=== PATIENT | female | born 1990 | race Caucasian/White ===

== ENCOUNTER 2025-06-14 14:03 | Outpatient (CLI) | payer OTHER, SELFPAY | END 2025-06-14 14:04 | disposition home or self-care (01) | PROVIDERS: PCP Nurse Practitioner Family; Visit Provider Nurse Practitioner Family | DX: Z01.818 Encounter for other preprocedural examination (principal) | CPT/HCPCS: 80048; 85025 ==

== ENCOUNTER 2025-06-20 07:20 | Day surgery (SDC) | payer OTHER, SELFPAY ==
[2025-06-20] MEDS: LACTATED RINGERS 1000 ML 1,000 ML 100 ML IV (07:30)
[2025-06-20 07:34] VITALS: BMI 19.9
[2025-06-20 07:42] VITALS: BP 107/71; PULSE 63; RESP 16; TEMP 36.7; O2SAT 100
[2025-06-20 07:47] LABS: Ur HCG Qualitative* Negative (Negative)
[2025-06-20] MEDS: BUPIVACAINE 0.25% 30 ML INJECTION (09:05)
--- NOTE | 2025-06-20 09:12 | W.PM.H&PU ---
History & Physical Update History & Physical Update H&P Reviewed and patient assessed: No changes noted
--- NOTE | 2025-06-20 09:13 | PM.GSPRC ---
Operative Note Date of procedure: 06/20/25 Pre-op diagnosis: Reducible umbilical hernia Post-op diagnosis: Reducible 1 cm umbilical hernia Type of Procedure: Open primary repair Procedure Description: After discussing the risks and benefits of the procedure, the patient signed informed consent.? The operative site was marked and the patient was brought to the operating room and placed on the operating table in supine position.? Care was taken to pad the patient's pressure points.?? The patient was then given sedation by anesthesia.?? The operative site was then prepped and draped in the usual sterile fashion.? A time-out was then performed. Local anesthetic was injected into the fascia, skin and subcutaneous tissues. A curvilinear incision was made at the umbilicus. Dissection was carried down into the subcutaneous tissue using cautery. The hernia sac was encountered and care was taken to not enter it. Dissection was taken down to the fascia, and the umbilical stalk was carefully dissected off of the hernia sac. The sac was reduced and the fascial edges were then cleared circumferentially. The hernia was 1 cm in size and so mesh was not deemed necessary. The fascia was then closed with 0 Nurolon suture in a vest over pants fashion. The umbilicus was reapproximated to the fascia using 3-0 Vicryl. The skin was then closed with running absorbable suture. A sterile dressing was then applied. ? The patient was then woken and transported to the recovery area in stable condition. ? The patient tolerated the procedure well. Findings: 1 cm umbilical hernia Surgeon: Ivette Mojica MD Estimated blood loss (mL): 1 Condition: stable Disposition: same day
[2025-06-20 09:19] VITALS: BP 99/69; PULSE 63; RESP 14; TEMP 36.7; O2SAT 99
--- NOTE | 2025-06-20 09:24 | P.ANES_ITS ---
Anesthesia Charges Start Date/Time Anesthesia Start Date: 06/20/25 Anesthesia Start Time: 08:30 Stop Date/Time Anesthesia Stop Date: 06/20/25 Anesthesia Stop Time: 09:21 Coding CPT Codes CPT Codes: ANESTH REPAIR OF HERNIA - 12761 ([id number]) P1 - NORMAL HEALTHY PATIENT, QK - ACTIVITIES LEADER 2-4 CNCRNT ANES PROC, QX - PIN SORTER AND BAGGER SVKirstin W/ MED DIRECTION
--- NOTE | 2025-06-20 09:24 | W.ANESCHARGE ---
Anesthesia Charges Start Date/Time Anesthesia Start Date: 06/20/25 Anesthesia Start Time: 08:30 Stop Date/Time Anesthesia Stop Date: 06/20/25 Anesthesia Stop Time: 09:21 Coding CPT Codes CPT Codes: ANESTH REPAIR OF HERNIA - 80660 ([id number]) P1 - NORMAL HEALTHY PATIENT, QK - DEMONSTRATOR ELECTRIC GAS APPLIANCES 2-4 CNCRNT ANES PROC, QX - DISPLAY TRIMMER SVKirstin W/ MED DIRECTION
[2025-06-20 09:30] VITALS: BP 100/98; PULSE 65; RESP 14; O2SAT 99
[2025-06-20 09:45] VITALS: BP 102/87; PULSE 64; RESP 14; O2SAT 99
--- NOTE | 2025-06-20 09:54 | P.ANES_ITS ---
Anesthesia Charges Start Date/Time Anesthesia Start Date: 06/20/25 Anesthesia Start Time: 08:30 Stop Date/Time Anesthesia Stop Date: 06/20/25 Anesthesia Stop Time: 09:21 Coding CPT Codes CPT Codes: ANESTH REPAIR OF HERNIA - 94259 ([id number]) QX - SPEEDER OPERATOR BASILIA W/ MED DIRECTION, QK - PICKED EDGE SEWING MACHINE OPERATOR 2-4 CNCRNT ANES PROC, P1 - NORMAL HEALTHY PATIENT
--- NOTE | 2025-06-20 09:54 | W.ANESCHARGE ---
Anesthesia Charges Start Date/Time Anesthesia Start Date: 06/20/25 Anesthesia Start Time: 08:30 Stop Date/Time Anesthesia Stop Date: 06/20/25 Anesthesia Stop Time: 09:21 Coding CPT Codes CPT Codes: ANESTH REPAIR OF HERNIA - 91030 ([id number]) QX - INSPECTOR TIMERS BASILIA W/ MED DIRECTION, QK - ACID RECOVERY OPERATOR 2-4 CNCRNT ANES PROC, P1 - NORMAL HEALTHY PATIENT
[2025-06-20 10:00] VITALS: BP 101/77; PULSE 65; RESP 14; O2SAT 99
[2025-06-20] MEDS: ACETAMINOPHEN 325 MG TABLET 650 MG PO (10:14)
== END 2025-06-20 10:35 | disposition home or self-care (01) ==
PROVIDERS: PCP Nurse Practitioner Family; Visit Provider Surgery
PROC: (CPT 49591; principal; 2025-06-20 08:30)
DX: K42.9 Umbilical hernia without obstruction or gangrene (principal)
CPT/HCPCS: 49591; 00830; 81025; A9270; J0330; J0665; J0690; J1100; J2250; J2371; J2405; J2704; J3010; J3490; J7120

== ENCOUNTER 2025-07-16 13:24 | Emergency (ER) | payer OTHER, SELFPAY ==
--- OUTSIDE RECORDS SUMMARY | 2024-01-23 05:32 | XMS_ITS ---
Author Organization [facility] In ternal Medicine [facility] [place] Address [address] [facility] [address] [place], [place] [address] Care Team Providers Care Director Of Intercollegiate Athletics Name Role Phone NON GRMG, PCP Primary Care Provider ELIZABETH Hood Unavailable [phone] REASON FOR VISIT DERMO - medication refill MEDICATIONS Medication SIG (Take, Route, Frequency, Duration) Notes Start Date End Date Status Clindamycin Phos-Benzoyl Perox 1.2-5 % 1 pea size amt mixed with facial moisturizer to entire face Externally every evening for 30 days Active Finacea 15 % 1 pea size amt mixed with facial moisturizer to entire face Externally every morning for 30 days Active Encounters Encounter Location Date Provider Diagnosis [facility] [address] [id number] 01/23/2024 ELIZABETH CHAU Acne rosacea L71.9 ASSESSMENTS Encounter Date Diagnosis Assessment Notes Treatment Notes Treatment Clinical Notes 01/23/2024 Acne rosacea (ICD-10 - L71.9) PLAN OF TREATMENT Medication Medication Name Sig Start Date Stop Date Notes Clindamycin Phos-Benzoyl Perox 1.2-5 % 1 pea size amt mixed with facial moisturizer to entire face Externally every evening for 30 days Finacea 15 % 1 pea size amt mixed with facial moisturizer to entire face Externally every morning for 30 days
--- OUTSIDE RECORDS SUMMARY | 2024-08-03 02:50 | XMS_ITS ---
Author Organization [facility] In ternal Medicine [facility] [place] Address [address] [facility] [address] [place], [place] [address] Care Team Providers Care Manager Training And Development Name Role Phone NON GRMG, PCP Primary Care Provider TORIE Rey Unavailable [phone] ALLERGIES No Known Allergies RESULTS Component Value Reference Range Notes Strep (ID NOW) Reviewed date:08/03/2024 09:51:31 AM Interpretation: Performing Lab: Notes/Report: Result Positive REASON FOR VISIT Poss strep MEDICATIONS Medication SIG (Take, Route, Frequency, Duration) Notes Start Date End Date Status Clindamycin Phos-Benzoyl Perox 1.2-5 % 1 pea size amt mixed with facial moisturizer to entire face Externally every evening for 30 days Active Finacea 15 % 1 pea size amt mixed with facial moisturizer to entire face Externally every morning for 30 days Active multivitamins with minerals (MULTIVITAL-M) TABS Take 1 each by mouth daily. Oral *Reorder from [employer] for eRx and Interaction Alerts* Active Finacea 15 % 1 pea-sized amount mixed with facial moisturizer to entire face avoiding eye area Externally QAM for 30 days 12/11/2018 Not-Taking Ibuprofen 800 MG Take 1 tablet by mouth every 6 (six) hours as needed. Oral 06/09/2020 Not-Taking Amoxicillin 500 MG 1 capsule Orally Twice a day for 10 days 08/03/2024 08/13/2024 Active Clindamycin Phos-Benzoyl Perox 1.2-5 % APPLY PEA SIZE AMOUNT MIXED WITH FACIAL MOISTURIZER TO FACE EVERY EVENING for 30 Active MetroLotion 0.75 % 1 pea-sized amount mixed with facial moisturizer to entire face Externally QHS for 30 days 12/11/2018 Not-Taking Sunscreen SPF50 - as directed Externally 06/03/2022 Not-Taking SOCIAL HISTORY Tobacco Use: Social History Observation Description Date Details (start date - stop date) Never Smoker NA - NA Sex Assigned At : Social History Observation Description Sex Assigned At Unknown Tobacco Use/Smoking Question Answer Notes Are you a nonsmoker VITAL SIGNS Temperature 97.8 degrees Fahrenheit 08/03/20 24 Blood pressure systolic 104 mm Hg 08/03/20 24 Blood pressure diastolic 68 mm Hg 024 Weight-kg 57.88 kg 08/03/2024 Weight 127.6 lbs 08/03/2024 Height-cm 167.64 cm 08/03/2024 Height 66 in 08/03/2024 BMI 20.59 kg/m2 08/03/2024 Oximetry 99 % 08/03/2024 Encounters Encounter Location Date Provider Diagnosis [facility] [address] [phone] 08/03/2024 TORIE THEODORE Sore throat J02.9 an d Strep throat J02.0 ASSESSMENTS Encounter Date Diagnosis Assessment Notes Treatment Notes Treatment Clinical Notes 08/03/2024 Sore throat (ICD-10 - J02.9) 08/03/2024 Strep throat (ICD-10 - J02.0) Strep ID-Now positive. Results shared at the time of visit. Will start patient on antibiotics. Encouraged maintaining adequate fluids and rest. May take Tylenol/ibuprofen for fever/comfort. Do not share eating/drinking utensils and change toothbrush. Notify PCP or RTC if symptoms not improving with use of antibiotic. Discussed symptoms that would warrant closer follow up. Patient and/or caregiver expressed understanding and agreement to this plan. 08/03/2024 Other Strep Throat: C are Instructions material was printed This provider has spoke with the patient and/or caregiver and discussed today's findings, in addition to providing specific detail for the plan of care and counseling regarding the diagnosis and prognosis. Discussed red flag symptoms of when to return versus when to present to the ED. Advised to schedule an appointment with PCP for follow-up. Patient and/or caregiver verbalizes understanding and agreement to plan of care. All questions were answered. Patient's VSS and in NAD. Will discharge pt home in stable condition. PLAN OF TREATMENT Medication Medication Name Sig Start Date Stop Date Notes Amoxicillin 500 MG 1 capsule Orally Twi ce a day for 10 days 08/03/2024 08/13/2024 Treatment Notes Assessment Notes Other Strep Throat: Care I nstructions material was printed Next Appt Details Follow Up: prn, Reason: Progress Notes * Examination Category Sub-Category Detail Notes General Examination GENERAL APPEARANCE: in no ac [place] distress, well developed, well nourished HEAD: normocephalic, atrau matic EYES: pupils equal, round, reactive to light and accommodation EARS: normal NOSE: Normal THROAT: Erythematous pharynx with tonsils 2+ bilaterally without exudate, uvula midline NECK/THYROID: neck supple, full ra nge of motion, tender anterior cervical lymphadenopathy HEART: no murmurs, regular rate and rhythm, S1, S2 normal LUNGS: clear to auscultatio n bilaterally SKIN: no suspicious lesion s, warm and dry ORAL CAVITY: mucosa moist
--- OUTSIDE RECORDS SUMMARY | 2024-09-11 03:00 | XMS_ITS ---
Author Organization [facility] [place] Address [address] [facility] [address] [place], [place] [address] Care Team Providers Care Zone Maintenance Technician Name Role Phone NON GRMG, PCP Primary Care Provider UnavailSANA Hayes Unavailable [phone] REASON FOR VISIT dermo 1y acne Encounters Encounter Location Date Provider Diagnosis zDermatology [address] [id number] 09/11/2024 SANA Fonseca PLAN OF TREATMENT No Information
--- OUTSIDE RECORDS SUMMARY | 2024-09-11 03:30 | XMS_ITS ---
Author Organization [facility] In ternal Medicine Multi [facility] [place] Address [address] [facility] [address] [place], [place] [address] Care Team Providers Care Technology Specialist Name Role Phone NON GRMG, PCP Primary Care Provider ELIZABETH Hood Unavailable [phone] ALLERGIES No Known Allergies RESULTS Component Value Reference Range Notes Surgical Specimen, Pathology Reviewed date:09/18/2024 10:56:12 AM Interpretation: Performing Lab: Notes/Report: Surgical Pathology REASON FOR VISIT Full body skin exam, F/u acne MEDICATIONS Medication SIG (Take, Route, Frequency, Duration) Notes Start Date End Date Status multivitamins with minerals (MULTIVITAL-M) TABS Take 1 each by mouth daily. Oral *Reorder from [employer] for eRx and Interaction Alerts* Active MetroLotion 0.75 % 1 pea-sized amount mixed with facial moisturizer to entire face Externally QHS for 30 days 12/11/2018 Not-Taking Sunscreen SPF50 - as directed Externally 06/03/2022 Not-Taking Finacea 15 % 1 pea-sized amount mixed with facial moisturizer to entire face avoiding eye area Externally QAM for 30 days 12/11/2018 Not-Taking Ibuprofen 800 MG Take 1 tablet by mouth every 6 (six) hours as needed. Oral 06/09/2020 Not-Taking Finacea 15 % 1 pea size amt mixed with facial moisturizer to entire face Externally every morning for 30 days Active Sunscreen SPF50 as directed Externally 09/11/2024 Active Clindamycin Phos-Benzoyl Perox 1.2-5 % 1 pea size amt mixed with facial moisturizer to entire face Externally every evening for 30 days Active Clindamycin Phos-Benzoyl Perox 1.2-5 % APPLY PEA SIZE AMOUNT MIXED WITH FACIAL MOISTURIZER TO FACE EVERY EVENING for 30 Not-Taking Vaseline . apply to affected area Externally two to three times daily for 7 days 09/11/2024 09/18/2024 Active SOCIAL HISTORY Tobacco Use: Social History Observation Description Date Details (start date - stop date) Never Smoker NA - NA Sex Assigned At : Social History Observation Description Sex Assigned At Unknown Tobacco Use/Smoking Question Answer Notes Are you a nonsmoker VITAL SIGNS Blood pressure systolic 110 mm Hg 09/11/20 24 Blood pressure diastolic 80 mm Hg 024 Weight-kg 57.7 kg 09/11/2024 Weight 127.2 lbs 09/11/2024 Height-cm 167.64 cm 09/11/2024 Height 66 in 09/11/2024 BMI 20.53 kg/m2 09/11/2024 PROCEDURES Procedure Date Ordered Date Performed Result Body Sit e BIOPSY, SKIN/SUBQ TISSUE 09/11/2024 N/A Encounters Encounter Location Date Provider Diagnosis [facility] [address] [place], [place] [id number] 09/11/2024 ELIZABETH CHAU Acne rosacea L71.9 ; Moderate sun exposure, initial encounter X32.XXXA ; Neoplasm of unspecified behavior of bone, soft tissue, and skin D49.2 ; Family history of nonmelanoma skin cancer Z80.8 and Multiple benign nevi D22.9 ASSESSMENTS Encounter Date Diagnosis Assessment Notes Treatment Notes Treatment Clinical Notes 09/11/2024 Acne rosacea (ICD-10 - L71.9) Acne etiology and expectations reviewed. Continue Duac every morning. Continue Finacea every evening. Call with concerns. Recheck in 1 year. 09/11/2024 Moderate sun exposure, initial encounter (ICD-10 - X32.XXXA) Patient Educated with: Sunscreens (Sunscreens.pdf) Actinically damaged skin is the result of chronic ultraviolet radiation exposure and this increases the risk of skin cancer. Sun protection was discussed including sunscreen use, protective clothing and avoidance. Recommend zinc oxide or titanium dioxide based sunscreens with a broad spectrum SPF 50+. Reapply every 2 hours. 09/11/2024 Neoplasm of unspecified behavior of bone, soft tissue, and skin (ICD-10 - D49.2) Patient Educated with: Wound Care (Wound Care.pdf) A shave biopsy was performed of the lesion on the right lateral umbilicus after a photo was obtained. Specimen container was labeled with the appropriate identifyng information. Drysol was used for hemostasis. Verbal and written wound care instructions were given to the patient. Written consent for the procedure was obtained and verbal consent for photography. 09/11/2024 Family history of nonmelanoma skin cancer (ICD-10 - Z80.8) The patient was encouraged to perform monthly self skin exams. 09/11/2024 Multiple benign nevi (ICD-10 - D22.9) None with any significant clinical atypia. The ABCDE's of melanoma were discussed with the patient. The patient was reassured regarding the benign appearance of the lesions on the vertex scalp and left plantar surface Monitor for any significant change and report. PLAN OF TREATMENT Medication Medication Name Sig Start Date Stop Date Notes Finacea 15 % 1 pea size amt mixed with facial moisturizer to entire face Externally every morning for 30 days Sunscreen SPF50 as directed Externally 09/11/2024 Clindamycin Phos-Benzoyl Perox 1.2-5 % 1 pea size amt mixed with facial moisturizer to entire face Externally every evening for 30 days Vaseline . apply to affected ar ea Externally two to three times daily for 7 days 09/11/2024 09/18/2024 Treatment Notes Assessment Notes Moderate sun exposure, initial encounter Patient Educated with: Sunscreens (Sunscreens.pdf) Neoplasm of unspecified beha vior of bone, soft tissue, and skin Patient Educated with: Wound Care (Wound Care.pdf) Pending Test Test Name Order Date BIOPSY, SKIN/SUBQ TISSUE 09/11/2024 Next Appt Details Follow Up: 1 Year, Reason: D ermo routine skin exam Progress Notes * Examination Category Sub-Category Detail Notes Dermatology SKIN Fairly evenly pi gmented brown/pink macules and papules with relative symmetry and border regularity on the anterior and posterior trunk and bilateral upper and lower extremities Fairly evenly pigmented light brown macules on the face, chest and shoulders On the right lateral umbilicus there is an irregularly pigmented macule
--- OUTSIDE RECORDS SUMMARY | 2024-09-18 04:54 | XMS_ITS ---
Author Organization [facility] In [facility] Medicine Multi Special[facility] [place] Address [address] [facility] [address] [place], [place] [address] Care Team Providers Care Fast Food Crew Lead Name Role Phone NON GRMG, PCP Primary Care Provider ELIZABETH Hood Unavailable [phone] REASON FOR VISIT DERMO - path result Encounters Encounter Location Date Provider Diagnosis zDermatology [id number] [place], [place] [phone] 09/18/2024 ELIZABETH CHAU PLAN OF TREATMENT No Information
[2025-07-16] VITALS (11 sets, daily range): BP systolic 112–131; BP diastolic 72–87; PULSE 63–80; RESP 14–16; TEMP 36.3; O2SAT 90–100; BMI 20.7
--- OUTSIDE RECORDS SUMMARY | 2025-07-16 13:28 | XMS_ITS | Patient Health Record ---
Author Organization [facility] [place] Address [address] [facility] [address] [place], [place] [address] Care Team Providers Care Accountant Property Name Role Phone NON GRMG, PCP Primary Care Provider UnavailSANA Hayes Unavailable [phone] ELIZABETH CHAU Unavailable [phone] TORIE THEODORE Unavailable [phone] ALLERGIES No Known Allergies RESULTS Component Value Reference Range Notes Surgical Specimen, Pathology Reviewed date:09/18/2024 10:56:12 AM Interpretation: Performing Lab: Notes/Report: Surgical Pathology Strep (ID NOW) Reviewed date:08/03/2024 09:51:31 AM Interpretation: Performing Lab: Notes/Report: Result Positive REASON FOR REFERRAL No Information MEDICATIONS Medication SIG (Take, Route, Frequency, Duration) Notes Start Date End Date Status Finacea 15 % 1 pea size amt mixed with facial moisturizer to entire face Externally every morning for 30 days Active Sunscreen SPF50 as directed Externally 09/11/2024 Active multivitamins with minerals (MULTIVITAL-M) TABS Take 1 each by mouth daily. Oral *Reorder from [employer] for eRx and Interaction Alerts* Active Clindamycin Phos-Benzoyl Perox 1.2-5 % 1 pea size amt mixed with facial moisturizer to entire face Externally every evening for 30 days Active Clindamycin Phos-Benzoyl Perox 1.2-5 % APPLY PEA SIZE AMOUNT MIXED WITH FACIAL MOISTURIZER TO FACE EVERY EVENING for 30 Not-Taking MetroLotion 0.75 % 1 pea-sized amount mixed [...] (six) hours as needed. Oral 06/09/2020 Not-Taking IMMUNIZATIONS Vaccine Route Administration Date Status Comme nts Influenza, Quadrivalent 0.5ml Unknown 10/08/2019 Administered Influenza, Quadrivalent 0.5ml Unknown 07/07/2020 Administered PURIFIED PROTEIN DERIVATIVE (PPD) ID Intradermal 05/03/2019 Administered VFC TETANUS, DIPHTHERIA, ACELLULAR PERTUSSIS (Tdap), 7+ yrs Unknown 03/26/2020 Administered SOCIAL HISTORY Tobacco Use: Social History Observation Description Date Details (start date - stop date) Never Smoker NA - NA Sex Assigned At : Social History Observation Description Sex Assigned At Unknown Tobacco Use/Smoking Question Answer Notes Are you a nonsmoker PROBLEMS Problem Type ICD Code Onset Dates Problem Status W/U Status Risk SNOMED Code Notes Problem Acne rosacea (L71.9) Active confirmed [id number] VITAL SIGNS Temperature 97.8 degrees Fahrenheit 08/03/2024 Height-cm 167.64 cm 09/11/2024 Oximetry 99 % 08/03/2024 Blood pressure diastolic 80 mm Hg 09/11/2024 Weight-kg 57.7 kg 09/11/2024 Height 66 in 09/11/2024 Blood pressure systolic 110 mm Hg 09/11/2024 Weight 127.2 lbs 09/11/2024 BMI 20.53 kg/m2 09/11/2024 PROCEDURES Procedure Date Ordered Date Performed Result Body Sit e BIOPSY, SKIN/SUBQ TISSUE 09/11/2024 N/A Encounters Encounter Location Date Provider Diagnosis zDermatology [address] [id number] 09/11/2024 ELIZABETH CHAU Acne rosacea L71.9 ; Moderate sun exposure, initial encounter X32.XXXA ; Neoplasm of unspecified behavior of bone, soft tissue, and skin D49.2 ; Family history of nonmelanoma skin cancer Z80.8 and Multiple benign nevi D22.9 Dermntology [facility] [address] [place], [place] [phone] 09/11/2024 SANA [facility] [address] [facility] [address] [place] [address] 08/03/2024 TORIE THEODORE Sore throat J02.9 and Strep [facility] J02.[facility] [address] [place] [phone] 09/18/2024 ELIZABETHMARYANN GELLERMarilyn ASSESSMENTS Encounter Date Diagnosis Assessment Notes Treatment [...] spectrum SPF 50+. Reapply every 2 hours. 08/03/2024 Sore throat (ICD-10 - J02.9) 08/03/2024 [...] expressed understanding and agreement to this plan. 09/11/2024 Neoplasm of unspecified behavior of bone, [...] Monitor for any significant change and report. 08/03/2024 Other Strep Throat: C are Instructions [...] home in stable condition. PLAN OF TREATMENT Pending Test Test Name Order Date BIOPSY, SKIN/SUBQ TISSUE 09/11/2024 Insurance Providers Payer Name Payer Address Payer Phone Subscriber Number Group Number Insured Name Patient Relationship to Insured Coverage Start Date Coverage End Date [facility] [address] [place] [address] [id number] Dejuan Ahmadi Spouse - patient is the spouse of the insured 2018 MEDICAL (GENERAL) HISTORY Medical History History ICD Code Problems: No known active problems , Sta tus: active Surgical History Surgery Date(Month/Year) wisdom teeth extraction x 2 2012 Hospitalization History Reason Date(Month/Year) - of twin girls
--- NOTE | 2025-07-16 14:00 | ED_ITS ---
HPI - General Adult General Date Seen: 07/16/25 Chief complaint: Abdominal Pain Stated complaint: lower abdominal pain Time Seen by Provider: 07/16/25 13:56 History of Present Illness HPI narrative: Very pleasant 34-year-old female presenting to the ER this morning for evaluation of abdominal pain. She started developing right lower quadrant abdominal pain this morning. No nausea or vomiting. Normal bowel movements and no diarrhea. Urination has been normal. She does have a history of an umbilical hernia repair less than 1 month ago on June [address] Mojica She has been healthy and well lately. No ongoing abdominal pain. Normal bowel movements. No nausea vomiting. Normal urination. She is currently on her menstrual cycle and this is on time and typical in its cramping and amount of bleeding. This morning she developed more severe right lower quadrant/right pelvic cramping. He was initially fairly mild and she was at work but then the symptoms got more severe and worse. It was so painful she vomited once (nonbloody). The pain became more intense so she had leave work and come here to the ER. She has not had any fever. Related Data Previous Rx's ?Medication ?Instructions ?Recorded azelaic acid 15 % topical gel 1 applic topical BID #50 grams 03/19/25 clindamycin 1.2 % (1 % 1 applic topical QPM #45 gra ms 03/19/25 base)-benzoyl peroxide 5 % topical gel ondansetron 4 mg disintegrating 4 mg PO Q8H PRN nausea and 07/16/25 tablet vomiting #10 tabs oxycodone-acetaminophen 5 mg-325 1 - 2 tab PO Q4-6H IL N pain #20 07/16/25 mg tablet (Percocet) tabs tamsulosin 0.4 mg capsule (Flomax) 0.4 mg PO DAILY #10 caps 07/16/25 Allergies Allergy/AdvReac Type Severity Reaction Status Date / Time No Known Drug Allergies Allergy Verified 07/16/25 16:36 [facility] Medical History (Updated 07/16/25 @ 17:49 by Taiwo Manzo MD) History of gestational diabetes ?Z86.32 - Personal history of gestational diabetes (ICD-10) Surgical History (Updated 07/09/25 @ 11:15 by Ivette Mojica MD) H/O umbilical hernia repair ?Z98.890 - Other specified postprocedural states (ICD-10) ?Z87.19 - Personal history of other diseases of the digestive system (ICD-10) History of wisdom tooth extraction ?K08.409 - Partial loss of teeth, unspecified cause, unspecified class (ICD- 10) H/O tubal ligation ?Z98.51 - Tubal ligation status (ICD-10) History of ?Z98.891 - History of uterine scar from previous surgery (ICD-10) Family History (Updated 06/14/25 @ 13:58 by Ambika Arceo APRN, SNEHAL) Mother Diabetes Congenital heart defect Paternal Grandmother Skin cancer Diabetes Maternal Grandmother Diabetes Social History Narrative: . 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 Bachelor's degree. No formal exercise. Nonsmoker. Alcohol rare. No illicit drug use. What is your current living situation?: I presently have a place to live Problems where you live: no known problems In the past 12 months, utilities in danger of being shut off: no In past 12 months, lack of transportation kept you from medical appts, meetings, work, or getting things needed for daily living: no In the past 12 mos, have been you worried that your food would run out before yo u had money to buy more?: never true In the past 12 mos, the food you bought just didn't last and you didn't have money to buy more?: never true Smoking Status: Never smoker Do you use any of these nicotine containing products: None How often do you have a drink containing alcohol: monthly or less How many standard drinks containing alcohol do you have on a typical day: 1 or 2 How often do you have six or more drinks on one occasion: Never AUDIT-C Alcohol total score: 1 Non-prescribed substance use: denies use Caffeine: Yes How often does anyone, including family, friends and others, physically hurt you : never How often does anyone, including family, friends and others, insult or talk down to you: never How often does anyone, including family, friends and others, threaten you with harm: never How often does anyone, including family, friends and others, scream or curse at you: never Are you using contraception or practicing any form of control: No service: No Exam Narrative: Exam Narrative: Constitutional: Appears well-developed and well-nourished. Alert. Initially very uncomfortable but polite and Conversant. Non toxic. HENT: Head: Atraumatic. Nose: Nose normal. Mouth/Throat: Oral mucosa is clear and moist. no trismus. Pharynx normal. Tonsils symmetric. No tonsillar enlargement, erythema, or exudate. Eyes: Conjunctivae normal. EOM normal. Pupils equal, round, and reactive to light. No scleral icterus. Neck: Normal range of motion. Neck supple. No tracheal deviation present. Cardiovascular: Normal rate, regular rhythm. No gallop. No friction rub. No murmur heard. Symmetric radial artery pulses Pulmonary/Chest: Effort normal. No stridor. No respiratory distress. No wheezes. No rales. No rhonchi . No tenderness. Abdominal: Soft. Bowel sounds normal. No distension. No mass. Right lower quad tenderness. No CVA tenderness No rebound. No guarding. Musculoskeletal: RUE: Normal range of motion. No tenderness. No deformity LUE: Normal range of motion. No tenderness. No deformity RLE: Normal range of motion. No edema. No tenderness. No deformity LLE: Normal range of motion. No edema. No tenderness. No deformity Neurological: Alert and oriented to person, place, and time. Normal strength. CN II-VII intact. No sensory deficit. GCS eye subscore is 4. GCS verbal subscore is 5. GCS motor subscore is 6. Normal coordination Skin: Skin is warm and dry. No rash noted. No pallor. Normal capillary refill. Psychiatric: Normal mood. Normal affect. Const: Vital Signs, click to edit/add: Vital Signs - 24 hr 07/16/25 13:53 07/16/25 14:40 07/16/25 14:45 Temperature 97.3 F L Pulse Rate 65 64 Pulse Rate [Pulse Oximeter] 80 Respiratory Rate 16 Blood Pressure Blood Pressure [Ri ght Upper Arm] 112/74 Pulse Oximetry 99 91 90 Oxygen Delivery Me thod Room Air 07/16/25 15:00 07/16/25 15:00 07/16/25 15:15 Temperature Pulse Rate 66 67 Pulse Rate [Pulse Oximeter] 64 Respiratory Rate 16 Blood Pressure Blood Pressure [Ri ght Upper Arm] 120/83 Pulse Oximetry 93 100 93 Oxygen Delivery Me thod Room Air 07/16/25 15:16 07/16/25 15:30 07/16/25 15:31 Temperature Pulse Rate 66 64 Pulse Rate [Pulse Oximeter] Respiratory Rate Blood Pressure 131/72 122/87 Blood Pressure [Ri ght Upper Arm] Pulse Oximetry 93 96 Oxygen Delivery Me thod 07/16/25 16:00 07/16/25 17:00 07/16/25 18:00 Temperature Pulse Rate Pulse Rate [Pulse Oximeter] 63 73 77 Respiratory Rate 16 16 14 Blood Pressure Blood Pressure [Ri ght Upper Arm] 115/78 113/73 117/86 Pulse Oximetry 100 95 96 Oxygen Delivery Me thod Room Air Room Air Room Air Course Vital Signs Vital signs: Initial Vital Signs Temperature 97.3 F L 07/16/25 13:53 Temperature Source Temporal Artery Scan 07/16/25 13:53 Pulse Rate 80 07/16/25 13:53 Respiratory Rate 16 07/16/25 13:53 Blood Pressure 112/74 07/16/25 13:53 Blood Pressure Mean 86 07/16/25 13:53 Pulse Oximetry 99 07/16/25 13:53 Oxygen Delivery Method Room Air 07/16/25 13:53 Vital Signs Temperature 97.3 F L 07/16/25 13:53 Pulse Rate 80 07/16/25 13:53 Respiratory Rate 16 07/16/25 13:53 Blood Pressure 112/74 07/16/25 13:53 Pulse Oximetry 99 07/16/25 13:53 Oxygen Delivery Method Room Air 07/16/25 13:53 Temperature 97.3 F L 07/16/25 13:53 Pulse Rate 77 07/16/25 18:00 Respiratory Rate 14 07/16/25 18:00 Blood Pressure 117/86 07/16/25 18:00 Pulse Oximetry 96 07/16/25 18:00 Oxygen Delivery Method Room Air 07/16/25 18:00 Medications Administered Medications: Discontinued Medications Generic Name Dose Route Start Last Admin Trade Name Freq PRN Reason Stop Dose Admin Hydromorphone HCl 0.5 mg 07/16/25 14:03 07/16/25 14:18 Hydromorphone 0.5 Mg/0.5 Ml Inj IVP 0.5 mg Q1H PRN Administration Pain Sodium Chloride 1,000 mls @ 1,000 mls/hr 07/16/25 14:15 07/16/25 14:27 0.9 % Sodium Chloride 1000 Ml IV 07/16/25 15:14 1,000 mls/hr .Q1H SHEREE Administration Ketorolac Tromethamine 15 mg 07/16/25 14:03 07/16/25 14:18 Ketorolac 15 Mg/Ml Inj IVP 07/16/25 14:04 15 mg ONCE ONE Administration Ondansetron HCl 4 mg 07/16/25 14:03 07/16/25 14:18 Ondansetron 2 Mg/Ml Inj IVP 07/16/25 14:04 4 mg ONCE ONE Administration Medical Decision Making MDM Narrative Medical decision making narrative: This patient presents with abrupt onset of right lower quadrant abdominal pain with some radiation to the right mid abdomen. After she was here in the ER she did have some right flank pain as well. Differential Diagnosis considered includes: Musculoskeletal pain, complication of her recent hernia surgery, ovarian pathology such as cyst or torsion, complication, Ureterolithiasis, UTI, pyelonephritis, AAA, colitis, diverticulitis, volvulus, appendicitis, cholecystitis, among others. At this point, the evaluation indicates that ureterolithiasis is the cause of the patient's symptoms. There are no signs that this is an infected stone. The patient's pain is controlled in ED. The patient is hemodynamically stable in ED. I think the patient is safe for discharge. The plan is discharge to home with recheck by primary care physician or urology.They will return to the ED right away if symptoms worsen (e.g Return immediately for fevers greater than 102, increasing pain, other new symptoms develop). Ureterolithiasis precautions for home. Prescriptions for pain control, nausea control, and flomax were provided. The patient's questions were answered. Opiate precautions reviewed. Questions answered Lab Data Labs: Lab Results 07/16/25 07/16/25 Range/Units 14:03 14:10 WBC 13.27 H (4.50-11.00) K/uL RBC 4.27 (4.00-5.20) m/uL Hgb 11.7 L (12.0-16.0) gm/dL Hct 35.9 (33.0-51.0) % MCV 84 (80-100) fL MCH 27 (26-34) pg MCHC 33 (32-36) gm/dL RDW Coeff of Toi 14.1 (11.5-15.5) % Plt Count 355 (140-440) K/uL Neut % (Auto) 86.0 H (42.0-72.0) % Lymph % (Auto) 6.8 L (20-44) % [place] % (Auto) 6.6 (0.0-11.0) % Eos % (Auto) 0.3 (0.0-7.0) % Baso % (Auto) 0.1 (0.0-3.0) % Neut # (Auto) 11.40 H (1.7-7.0) K/uL Lymph # (Auto) 0.90 (0.90-2.90) K/uL [place] # (Auto) 0.90 (0.00-0.90) K/UL Eos # (Auto) 0.00 (0.00-0.50) K/uL Baso # (Auto) 0.00 (0.00-0.30) K/uL Abs Immat Gran (auto) 0.00 (0.00-0.30) K/uL Imm/Tot Granulo (auto) 0.2 % Sodium 138 (135-149) mmol/L Potassium 3.8 (3.6-5.1) mmol/L Chloride 104 (96-114) mmol/L Carbon Dioxide 25 (20-32) mmol/L Anion Gap 9 (7-15) mEq/L BUN 15 (5-24) mg/dL Creatinine 0.8 (0.5-1.5) mg/dL Estimated Creat Clear 92.53 Estimated GFR 100 ml/min Glucose 136 H (60-115) mg/dL Lactate 1.3 (0.5-1.9) mmol/L Calcium 9.0 (8.4-10.6) mg/dL Total Bilirubin 0.2 (0.1-1.5) mg/dL AST 24 (12-35) U/L ALT 18 (4-35) U/L Alkaline Phosphatase 46 (40-150) U/L Total Protein 7.3 (6.0-8.3) g/dL Albumin 4.6 (3.3-5.0) g/dL Urine Color Yellow (Yellow) Urine Appearance Cloudy A (Clear) Urine pH 8.5 (5.0-8.5) Ur Specific [place] 1.020 (1.000-1.030) Urine Protein 1+ A (Negative) Urine Glucose (UA) Negative (Negative) Urine Ketones Negative (Negative) Urine Blood Trace-intact A (Negative) Urine Nitrite Negative (Negative) Urine Bilirubin Negative (Negative) Urine Urobilinogen 0.2 (0.2-1.0) Ur Leukocyte Esterase Negative (Negative) Urine RBC 0-2 (0-2) Urine WBC 0-2 (0-5) Ur Squamous Epith Cells None (None-Few) Amorphous Sediment Many A (None) Urine Bacteria None (None) Urine HCG, Qual Negative (Negative) Imaging Data CT scan - abdomen: Attestation: I have reviewed the pertinent imaging results. Radiologist's impression: Impression: Obstructing 5 millimeter stone at the right ureterovesicular junction causing moderate right-sided hydroureteronephrosis. Discharge Plan Discharge Clinical Impression: Kidney stone on right side Patient Disposition: Home, Self-Care Condition: Stable Instructions: Kidney Stones (ED) Additional Instructions: As we discussed, your workup today shows that you have a kidney stone blocking the ureter a coming out of your right kidney. We hope that this kidney stone will pass sometime during the next several days. To help the kidney stone pass, try to drink plenty of fluids and stay hydrated. To help with kidney stone passed, please take Flomax once daily. This will help relax the muscles in the ureter To help manage pain you can start with [id number] Tylenol or ibuprofen. Use the prescription pain killer (Percocet) for severe pain or pain uncontrolled by the other medications. Be careful with Percocet because it can cause dizziness, drowsiness, constipation, slow reflexes, and can be addictive. Use Zofran if needed to help treat nausea. Please come back to the ER right away if you have problems especially severe or uncontrolled pain, fever or chills or weakness, uncontrolled nausea or vomiting, inability to take her oral medications, or dehydration. Please call a urologist tomorrow to arrange an ER follow-up visit for this kidney stone within 1-2 weeks, in case the stone has not passed. The best way to arrange urology is to check with her insurance and find out which group is ?in network. ? Unfortunately, we do not have a urologist here in [place]. Prescriptions: New ondansetron 4 mg tablet,disintegrating 4 mg PO Q8H PRN (Reason: nausea and vomiting) Qty: 10 0RF tamsulosin [Flomax] 0.4 mg capsule 0.4 mg PO DAILY Qty: 10 0RF oxycodone-acetaminophen [Percocet] 5-325 mg tablet 1 - 2 tab PO Q4-6H PRN (Reason: pain) Qty: 20 0RF No Action azelaic acid 15 % gel 1 applic topical BID Qty: 50 1RF clindamycin-benzoyl peroxide 1.2 %(1 % base) -5 % gel 1 applic topical QPM Qty: 45 1RF Follow Up/Referrals: Ambika Arceo APRN, PROTECTION CONSULTANT [Primary Care Provider, Family Practice] Stand Alone Forms: [facility]School Release, [facility] Info Instructions
[2025-07-16] MEDS: ONDANSETRON 2 MG/ML inj 4 MG IVP (14:18)
[2025-07-16 14:19] LABS: Lactate* 1.3 mmol/L (0.5-1.9)
[2025-07-16 14:28] LABS: Hematocrit* 35.9 % (33.0-51.0); Hemoglobin* 11.7 gm/dL (12.0-16.0); Mean Corpuscular HGB Conc 33 gm/dL (32-36); Mean Corpuscular Hemoglobin 27 pg (26-34); Mean Corpuscular Volume 84 fL (80-100); RDW Coefficient of Variation % 14.1 % (11.5-15.5); Red Blood Count* 4.27 m/uL (4.00-5.20); White Blood Count* 13.27 K/uL (4.50-11.00)
[2025-07-16 14:29] LABS: Immature Granulocytes Pct Auto 0.2 %; Lymphocytes Absolute Auto 0.90 K/uL (0.90-2.90)
[2025-07-16 14:35] LABS: Immature Granulocytes Abs Auto 0.00 K/uL (0.00-0.30); Slide Review Reflex No
[2025-07-16 14:43] LABS: Appearance Urine Cloudy (Clear)
[2025-07-16 14:48] LABS: Albumin* 4.6 g/dL (3.3-5.0); Chloride* 104 mmol/L (96-114)
[2025-07-16 14:49] LABS: Potassium* 3.8 mmol/L (3.6-5.1); Sodium* 138 mmol/L (135-149)
[2025-07-16 14:51] LABS: Alanine Aminotransferase* 18 U/L (4-35); Blood Urea Nitrogen* 15 mg/dL (5-24); Creatinine* 0.8 mg/dL (0.5-1.5); Est. Creatinine Clearance* 92.53; Estimated Glomerular Filt Rate 100 ml/min
[2025-07-16 14:52] LABS: Alkaline Phosphatase* 46 U/L (40-150); Anion Gap 9 mEq/L (7-15); Aspartate Amino Transferase* 24 U/L (12-35); Bilirubin Total* 0.2 mg/dL (0.1-1.5); Calcium* 9.0 mg/dL (8.4-10.6); Carbon Dioxide* 25 mmol/L (20-32); Glucose* 136 mg/dL (60-115); Total Protein* 7.3 g/dL (6.0-8.3)
[2025-07-16 15:57] LABS: Ur HCG Qualitative* Negative (Negative)
--- NOTE | 2025-07-16 16:27 | CRLHL7_ITS ---
For Patients: As a result of the Century Cures Act, medical imaging exams and procedure reports are released immediately into your electronic medical record. You may view this report before your referring provider. If you have questions, please contact your health care provider. Indication: RLQ PAIN Technique: CT abdomen/pelvis with IV contrast utilizing 66 mL Isovue 370 Comparison: None Findings: Lower thorax: Unremarkable Abdomen/pelvis: The liver, gallbladder, and biliary system are unremarkable. Small calcified granulomas in the spleen, likely sequela of remote granulomatous disease. The pancreas and adrenal glands are unremarkable. The left kidney and left ureter are unremarkable. There is an obstructing 5 millimeter stone at the right ureterovesicular junction causing moderate right-sided hydroureteronephrosis. The uterus and bilateral ovaries are unremarkable. No suspicious adnexal lesions. No evidence of bowel obstruction or inflammation. No CT evidence of acute appendicitis. No free air, free fluid, or abscess. No abdominopelvic lymphadenopathy. Circumaortic left renal vein; otherwise, the vasculature is unremarkable. Soft tissue/musculoskeletal: Unremarkable Impression: Obstructing 5 millimeter stone at the right ureterovesicular junction causing moderate right-sided hydroureteronephrosis. Please note that all CT scans at this facility use dose modulation, iterative reconstruction, and/or weight-based dosing when appropriate to reduce radiation dose to as low as reasonably achievable. Dictated by Juve Nava MD @ 07/16/2025 4:57:22 PM (Electronically Signed)
== END 2025-07-16 18:10 | disposition home or self-care (01) ==
PROVIDERS: Emergency Provider Emergency Medicine; PCP Nurse Practitioner Family
DX: N20.0 Calculus of kidney (principal); R10.31 Right lower quadrant pain
CPT/HCPCS: 36415; 74177; 80053; 81001; 81025; 83605; 85025; 96374; 96375; 99283; 99284; 99285; J1171; J1885; J2405; J7030; Q9967